=== PATIENT | male | born 1960 | race Caucasian/White ===

== ENCOUNTER → 2023-10-30 | Outpatient (CLI) | payer OTHER | LOC: M PLARAD 13:50 | PROVIDERS: ATTEND Family Medicine | DX: R91.8 Other nonspecific abnormal finding of lung field (principal) | CPT/HCPCS: 78816; A9552 ==

== ENCOUNTER → 2023-11-03 | Outpatient (REF) | payer OTHER ==
[2023-11-03 13:55] LABS: TOTAL PROTEIN,RANDOM URINE 35.9 MG/DL (0.0-14.0)
[2023-11-03 13:59] LABS: CREATININE,RANDOM URINE 90.6 MG/DL
[2023-11-08 21:11] LABS: ANTINUCLEAR ANTIBODIES DIRECT Negative (Negative)
== END ==
LOC: M LAB REF 12:34
PROVIDERS: ATTEND Internal Medicine Nephrology
DX: I10 Essential (primary) hypertension (principal); N18.32 Chronic kidney disease, stage 3b